=== PATIENT | female | born 1930 | race Caucasian/White ===

== ENCOUNTER → 2016-11-28 | Outpatient (CLI) | payer MEDICARE, BC | END | disposition home or self-care (01) | LOC: PCVCIMAG 12:46 | PROVIDERS: ATTEND Nuclear Medicine Nuclear Cardiology | DX: I70.213 Atherosclerosis of native arteries of extremities with intermittent claudication, bilateral legs (principal); I25.10 Atherosclerotic heart disease of native coronary artery without angina pectoris; I48.91 Unspecified atrial fibrillation; I10 Essential (primary) hypertension; E78.00 Pure hypercholesterolemia, unspecified; I35.0 Nonrheumatic aortic (valve) stenosis | CPT/HCPCS: 93005; 93923; 93925; G0463; 93924 ==

== ENCOUNTER → 2016-12-05 | Outpatient (CLI) | payer MEDICARE, BC ==
[~2016-12-05] MED LIST: DIAZEPAM 10 MG TABLET. ONE; EPTIFIBATIDE BOLUS 2,000 MCG/ML 10ML VIAL. IV ONE; FENTANYL PF 100 MCG/2 ML VIAL. ONE; HEPARIN SODIUM 5,000 UNIT/ML VIAL. ONE; IODIXANOL 270 MG/ML 100 ML VIAL. ONE; IV NORMAL SALINE 1000ML BAG 1,000 ML ONE; IV NORMAL SALINE 500ML BAG 500 ML ONE; LIDOCAINE 1% Multi-Dose 20 ML VIAL. ONE; MIDAZOLAM HCL/PF 2 MG/2 ML VIAL. ONE; hydrALAZINE 20 MG/ML VIAL. ONE
== END | disposition home or self-care (01) ==
LOC: PCVCINTER 08:39
PROVIDERS: ATTEND Nuclear Medicine Nuclear Cardiology
DX: I70.202 Unspecified atherosclerosis of native arteries of extremities, left leg (principal); I74.3 Embolism and thrombosis of arteries of the lower extremities; I70.0 Atherosclerosis of aorta; I77.1 Stricture of artery; I15.0 Renovascular hypertension; I70.1 Atherosclerosis of renal artery
CPT/HCPCS: 36252; 37186; 37225; 75716; 76937; C1725; C1751; C1757; C1760; C1769; C1885; C1894; C2623; J1327; J1644; J2250; J3010; J7030; J7040; J0360

== ENCOUNTER → 2017-04-13 | Outpatient (CLI) | payer MEDICARE, BC ==
--- NOTE | 2017-04-13 15:02 | PCVCIMAG ---
EXAM: BILATERAL CAROTID DUPLEX INDICATION: Carotid Occlusive Disease. FINDINGS: Doppler Measurements (centimeters per second): RIGHT: Peak CCA-57, Peak ECA-214, Diastolic ICA-24, Peak ICA-85, ICA/CCA Ratio-1.5. LEFT: Peak CCA-87, Peak ECA-69, Diastolic ICA-35, Peak ICA-118, ICA/CCA Ratio-1.4. RIGHT CAROTID: The carotid bulb has moderate plaque. The proximal internal carotid artery shows <40% stenosis. The common carotid artery shows no significant stenosis. The external carotid artery shows 60% stenosis. LEFT CAROTID: The carotid bulb has moderate plaque. The proximal internal carotid artery shows 40-50% stenosis. The common carotid artery shows no significant stenosis. The external carotid artery shows no significant stenosis. Antegrade flow in both vertebral arteries. IMPRESSION: <40% stenosis of the right internal carotid artery with moderate plaque. 40-50% stenosis of the left internal carotid artery with moderate plaque. LOC:[place] [id number]
--- NOTE | 2017-04-13 16:02 | PCVCIMAG ---
EXAM: NONINVASIVE ARTERIAL EXAMINATION OF BOTH LOWER EXTREMITIES INCLUDING PRE AND POST EXERCISE PRESSURE MEASUREMENTS AND DOPPLER WAVEFORMS INDICATION: Peripheral Arterial Disease. Leg pain. FINDINGS: Right Brachial: 134 mm Hg. Right Dorsalis Pedis: 157 mm Hg. Right Posterior Tibial: 147 mm Hg. Right SUZY = 1.11. Left Brachial: 142 mm Hg. Left Dorsalis Pedis: 134 mm Hg. Left Posterior Tibial: 116 mm Hg. Left SUZY = 0.94. Post Exercise: Left Brachial 135 mm Hg. Right Dorsalis Pedis: 99 mm Hg. Left Dorsalis Pedis: 118 mm Hg. Right SUZY = 0.73. Left SUZY = 0.87. IMPRESSION: No significant resting ischemia in the right lower extremity. Mild exercise induced ischemia in the right lower extremity. No significant resting ischemia in the left lower extremity. No significant exercise induced ischemia in the left lower extremity. LOC:[id number]
--- NOTE | 2017-04-13 16:06 | PCVCIMAG ---
EXAM: BILATERAL LOWER EXTREMITY ARTERIAL DUPLEX INDICATION: Peripheral Arterial Disease. Leg pain. FINDINGS: Right Leg: Satisfactory arterial waveforms in the common and profunda femoral and the superficial femoral and popliteal arteries without flow-limiting stenosis. Previous right superficial femoral artery stent is maintaining satisfactory patency. 80% stenosis proximal anterior tibial artery. The peroneal artery is patent. The posterior tibial artery is occluded. Left Leg: Satisfactory arterial waveforms in the common femoral and profunda femoral arteries without significant stenosis. Mild velocity elevation distal superficial femoral artery consistent with 40% in-stent restenosis not felt to be flow-limiting. Previous popliteal artery stent is patent. There is occlusion of the posterior tibial artery. The peroneal artery and anterior tibial arteries are patent. IMPRESSION: Previous right superficial femoral artery stents maintaining satisfactory patency. Mild in stent restenosis distal right superficial femoral artery not felt to be flow-limiting. Previous left popliteal stent maintaining good patency. 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 LOC:[id number]
== END | disposition home or self-care (01) ==
LOC: PCVCIMAG 13:15
PROVIDERS: ATTEND Nuclear Medicine Nuclear Cardiology
DX: I65.23 Occlusion and stenosis of bilateral carotid arteries (principal); I73.9 Peripheral vascular disease, unspecified; I10 Essential (primary) hypertension; I77.89 Other specified disorders of arteries and arterioles; I77.1 Stricture of artery; I25.10 Atherosclerotic heart disease of native coronary artery without angina pectoris; I48.91 Unspecified atrial fibrillation; E78.00 Pure hypercholesterolemia, unspecified; Z95.828 Presence of other vascular implants and grafts; Z88.0 Allergy status to penicillin; Z88.2 Allergy status to sulfonamides
CPT/HCPCS: 93880; 93923; 93925; G0463; 93924

== ENCOUNTER → 2017-11-06 | Outpatient (CLI) | payer MEDICARE, BC | END | disposition home or self-care (01) | LOC: PCVCIMAG 12:34 | DX: I25.10 Atherosclerotic heart disease of native coronary artery without angina pectoris (principal); I48.91 Unspecified atrial fibrillation; I08.8 Other rheumatic multiple valve diseases; I73.9 Peripheral vascular disease, unspecified; I10 Essential (primary) hypertension; E78.5 Hyperlipidemia, unspecified; I77.9 Disorder of arteries and arterioles, unspecified; Q25.3 Supravalvular aortic stenosis; E78.00 Pure hypercholesterolemia, unspecified; Z88.0 Allergy status to penicillin; Z79.899 Other long term (current) drug therapy | CPT/HCPCS: 93005; 93306; 93923; 93925; G0463 ==

== ENCOUNTER → 2018-05-14 | Outpatient (CLI) | payer MEDICARE, BC ==
--- NOTE | 2018-05-14 15:18 | PCVCIMAG ---
EXAM: NONINVASIVE ARTERIAL EXAMINATION OF BOTH LOWER EXTREMITIES INCLUDING PRE AND POST EXERCISE PRESSURE MEASUREMENTS AND DOPPLER WAVEFORMS INDICATION: Peripheral Arterial Disease. Leg pain. FINDINGS: Right Brachial: 164 mm Hg. Right Dorsalis Pedis: 98 mm Hg. Right Posterior Tibial: 133 mm Hg. Right SUZY = 0.81. Left Brachial: 162 mm Hg. Left Dorsalis Pedis: 143 mm Hg. Left Posterior Tibial: 0 mm Hg. Left SUZY = 0.87. Post Exercise: Right Brachial 179 mm Hg. Right Posterior Tibial: 76 mm Hg. Left Dorsalis Pedis: 143 mm Hg. Right SUZY = 0.42. Left SUZY = 0.80. IMPRESSION: Minimal resting ischemia in the right lower extremity. Moderate exercise induced ischemia in the right lower extremity. No resting ischemia in the left lower extremity. Minimal exercise induced ischemia in the left lower extremity. Little overall change compared to October 2017 study. LOC:[id number]
--- NOTE | 2018-05-14 15:22 | PCVCIMAG ---
EXAM: BILATERAL CAROTID DUPLEX INDICATION: Carotid Occlusive Disease. FINDINGS: Doppler Measurements (centimeters per second): RIGHT: Peak CCA-50, Peak ECA-411, Diastolic ICA-22, Peak ICA-100, ICA/CCA Ratio-2.0. LEFT: Peak CCA-72, Peak ECA-93, Diastolic ICA-25, Peak ICA-112, ICA/CCA Ratio-1.6. RIGHT CAROTID: The carotid bulb has moderate plaque. The proximal internal carotid artery shows <40% stenosis. The common carotid artery shows no significant stenosis. The external carotid artery shows 90% stenosis. LEFT CAROTID: The carotid bulb has moderate plaque. The proximal internal carotid artery shows <40% stenosis. The common carotid artery shows no significant stenosis. The external carotid artery shows no significant stenosis. Antegrade flow in both vertebral arteries. IMPRESSION: <40% stenosis of the right internal carotid artery with moderate plaque. <40% stenosis of the left internal carotid artery with moderate plaque. LOC:[place] [id number]
--- NOTE | 2018-05-14 15:39 | PCVCIMAG ---
EXAM: BILATERAL LOWER EXTREMITY ARTERIAL DUPLEX INDICATION: Peripheral Arterial Disease. Leg pain. FINDINGS: Right Leg: Common femoral and profunda femoral arteries are patent. Previous stent throughout the superficial femoral artery maintaining satisfactory patency. Increased systolic velocity proximal popliteal artery of 446 cm/s consistent with 90% stenosis. Blunted arterial waveform in the mid and distal popliteal artery. Unchanged occlusion of the posterior tibial artery. 80% stenosis proximal right anterior tibial artery. The peroneal artery is patent. Left Leg: Common femoral and profunda femoral arteries are patent. Stent throughout the superficial femoral artery maintaining satisfactory patency. Previous popliteal artery stent also maintained satisfactory patency. Posterior tibial artery is occluded throughout. The anterior tibial artery is patent. 80% stenosis upper peroneal artery. IMPRESSION: Interval development 90% stenosis proximal right popliteal artery. Previous right superficial femoral artery stent maintaining satisfactory patency. 80% stenosis proximal right anterior tibial artery. Previous left superficial femoral artery and popliteal artery stents maintaining satisfactory patency. 80% stenosis proximal peroneal artery. 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 LOC:[id number]
== END | disposition home or self-care (01) ==
LOC: PCVCIMAG 15:46
PROVIDERS: ATTEND Nuclear Medicine Nuclear Cardiology
DX: I73.9 Peripheral vascular disease, unspecified (principal); I65.23 Occlusion and stenosis of bilateral carotid arteries; I77.9 Disorder of arteries and arterioles, unspecified; I25.10 Atherosclerotic heart disease of native coronary artery without angina pectoris; I10 Essential (primary) hypertension; I48.91 Unspecified atrial fibrillation; Q25.3 Supravalvular aortic stenosis; E78.00 Pure hypercholesterolemia, unspecified
CPT/HCPCS: 93880; 93923; 93925; G0463; 93924

== ENCOUNTER → 2018-09-02 | Outpatient (CLI) | payer MEDICARE, BC ==
--- NOTE | 2018-09-02 10:37 | PCVCIMAG ---
EXAM: BILATERAL LOWER EXTREMITY ARTERIAL DUPLEX INDICATION: Peripheral Arterial Disease. Leg pain. FINDINGS: Right Leg: Common femoral profunda femoral arteries are patent. Superficial femoral artery is patent including previous stent mid/distal vessel. Increased systolic velocity 446 cm/s proximal popliteal artery consistent with 90% stenosis similar to April 2018 study. Posterior tibial arteries occluded and this is unchanged. 80% stenosis proximal anterior tibial artery also unchanged. Peroneal artery is patent. Left Leg: Common femoral profunda femoral arteries are patent. Superficial femoral artery and popliteal arteries are patent within prior stent throughout. Unchanged occlusion of the posterior tibial artery. 80% stenosis proximal peroneal artery is unchanged. Anterior tibial artery is patent. IMPRESSION: Previous right superficial femoral artery stent maintaining satisfactory patency. Unchanged 90% stenosis proximal right popliteal artery. Unchanged 80% stenosis proximal right anterior tibial artery. Unchanged occlusion of the right posterior tibial artery. Previous left superficial femoral artery and popliteal artery stents maintaining satisfactory patency. Unchanged occlusion of the left posterior tibial artery. Unchanged 80% stenosis proximal left peroneal artery. LOC:[id number]
== END | disposition home or self-care (01) ==
LOC: PCVCIMAG 08:39
PROVIDERS: ATTEND Nuclear Medicine Nuclear Cardiology
DX: I73.9 Peripheral vascular disease, unspecified (principal); I77.9 Disorder of arteries and arterioles, unspecified; I25.10 Atherosclerotic heart disease of native coronary artery without angina pectoris; I10 Essential (primary) hypertension; I48.91 Unspecified atrial fibrillation; I35.0 Nonrheumatic aortic (valve) stenosis; E78.00 Pure hypercholesterolemia, unspecified; M19.90 Unspecified osteoarthritis, unspecified site; Z79.82 Long term (current) use of aspirin; Z79.899 Other long term (current) drug therapy
CPT/HCPCS: 93925; G0463

== ENCOUNTER → 2019-01-03 | Outpatient (CLI) | payer MEDICARE, BC ==
--- NOTE | 2019-01-03 18:22 | PCVCIMAG ---
EXAM: BILATERAL LOWER EXTREMITY ARTERIAL DUPLEX INDICATION: Peripheral Arterial Disease. Leg pain. FINDINGS: Right Leg: Common femoral profunda femoral arteries are patent. Superficial femoral artery is patent including previous stent mid/distal portion. Increased velocity 406 cm/s proximal popliteal artery consistent with 90% stenosis unchanged since April 2018 study. Posterior tibial artery is occluded. Mild stenosis proximal anterior tibial artery. Peroneal artery is patent. Left Leg: Common femoral profunda femoral is patent. Superficial femoral artery and popliteal artery are patent including previous areas of stents. Posterior tibial artery is occluded. The anterior tibial and peroneal arteries are patent. IMPRESSION: Previous right superficial femoral artery stent maintaining good patency. 90% stenosis proximal right popliteal artery unchanged since April 2018 study. Mild stenosis proximal right anterior tibial artery. Previous left superficial femoral and popliteal artery stents maintaining satisfactory patency. 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 LOC:[id number]
== END | disposition home or self-care (01) ==
LOC: PCVCIMAG 09:05
PROVIDERS: ATTEND Nuclear Medicine Nuclear Cardiology
DX: I73.9 Peripheral vascular disease, unspecified (principal); E78.00 Pure hypercholesterolemia, unspecified
CPT/HCPCS: 93925